=== PATIENT | male | born 1940 | race Caucasian/White ===

== ENCOUNTER → 2017-04-13 | Day surgery (SDC) | payer MEDICARE ==
[~2017-04-13] MED LIST: ASPI1TAB57 PO; ASPI81 PO; CARD240C6 PO; COZA100T PO; GLUC500C56 PO; IOHEXOL 180 MG/ML 20 ML VIAL (for RAD DIAG) EPIDURAL ONE; LIDOCAINE HCL 1% PF 30 ML VIAL EPIDURAL ONE; LIPI40TA PO; LOSA50TA PO; MEPERIDINE HCL 25 MG/ML VIAL IV ONE; MIDAZOLAM HCL 2 MG/2 ML VIAL IV ONE; OMEP20TA93 PO; OXYC-360 PO; PROPOFOL 200 MG/20 ML AMP IV ONE; TRIAMCINOLONE ACETONIDE 40 MG/ML VIAL NERV BLOCK ONE
--- NOTE | 2017-04-13 09:33 | M6 ---
cc: Michele HO JEFFREY DATE 04/13/2017 DATE OF 1940 PROCEDURE Fluoroscopically guided right L3-4 and right L4-5 selective nerve root injection. PREPROCEDURE NOTE Mr. Flores is a 76-year-old gentleman who has low back pain and right lower extremity pain extending down across his right thigh down to the knee, but not below the knee Dr. Chriss Galloway spoke with me personally several days ago regarding the patient. He has an MRI which was done 04/06/2017. He has several bulging disks. At the L3-4 level, he has a herniated disk extending out to the right causing some right lateral recess stenosis and encroachment on the right L3 nerve root. He also has herniated disk at L4-5 encroaching on the bilateral L4 nerve roots and at L5-S1 encroaching on the L5 nerve roots PROCEDURE NOTE History and physical was completed and signed. Consent was signed. Procedure site was marked. Medications were listed and reconciled. Pain score was recorded. Allergies were noted. Time out was taken. Fluoroscopy time was recorded where applicable. Sedation was administered or directed by Dr. Ho. The patient was given oxygen. The patient was monitored by a registered nurse. Total procedure time was greater than 15 minutes. IV was started, blood pressure cuff, pulse oximeter and EKG were applied. The patient was placed in the prone position on a Micah table, sedated with small amounts of Versed, Demerol and propofol titrated to effect. Vital signs were monitored and remained stable throughout the procedure. The lumbar area was prepped with alcohol and 10% Betadine solution and draped with sterile drapes. Fluoroscopy was used in both the AP and lateral projection to visualize the right L3-4 and right L4-5 neural foramen. Then a separate sterile 3-1/2-inch 22-gauge Chiba needles were advanced into the dorsal aspect of each foramen. There was negative aspiration for blood or any other type of fluid. Omnipaque dye was injected and seen to spread along the L3 and L4 nerve root. At this point, the patient was given 3 mL of 1% Xylocaine, 3 mL of Omnipaque and 40 mg of Kenalog on each nerve. Following this, the patient was taken to the recovery room with stable vital signs neurologically intact. W. MD CHETAN Suazo/DJL 9:07 AM /9:31 AM
--- NOTE | 2017-04-13 13:19 | RADRPT ---
EXAM DATE/TIME: 04/13/2017 10:10 [facility] COMPARISON: No previous studies available for comparison. INDICATIONS : L3/4, L4/5 Injection with pain management MEDICAL HISTORY : None. SURGICAL HISTORY : None. ENCOUNTER: Initial ACUITY: 1 day PAIN SCORE: Non-responsive. LOCATION: lumbar spine FINDINGS: Transforaminal epidural injections were obtained at L3-4 and L4-5 on the right. CONCLUSION: Injections as above. Lalo Francois MD FACR on April 13, 2017 at 13:17 Board Certified Radiologist. This report was verified electronically.
== END | disposition home or self-care (01) ==
LOC: PHSDC 07:02
PROVIDERS: ATTEND Pain Medicine Interventional Pain Medicine
DX: M54.5 Low back pain (principal); M79.661 Pain in right lower leg
CPT/HCPCS: 64483; 64484; 72020; 99152; J2175; J2250; J3301; Q9965; 64494